=== PATIENT | female | born 1975 | race Caucasian/White ===

== ENCOUNTER 2016-09-17 06:12 | Day surgery (SDC) | payer MEDICARE, OTHER ==
[2016-09-17] VITALS (8 sets, daily range): BP systolic 101–149; BP diastolic 55–91; PULSE 73–97; RESP 16–18; Ht 154.9 cm; Wt 59.0 kg
[~2016-09-17] VITALS: Ht 154.9 cm; Wt 59.0 kg
[~2016-09-17 06:12] MED LIST: AMLO2.5T78 PO; ASPI-664 PO; FER325 PO; LOSA50TA2 PO; VIT1TABL28 PO
[2016-09-17] MEDS ORDERED: LIDOCAINE 1% (MDV) 20 ML INJ ONE (07:00)
--- NOTE | 2016-09-17 08:28 | RADRPT ---
PROCEDURE: XR Chest 1 View. CLINICAL INDICATION: Abnormal breath sounds, preop. TECHNIQUE: AP view of the chest was obtained. COMPARISON: January 20, 2016 FINDINGS: The cardiomediastinal silhouette is within normal limits. Right-sided dialysis catheter has its tip in the expected location of the mid to distal right atrium and appears stable. Elevation right yuliana diaphragm is observed. Atelectasis is noted at the lung bases. No consolidations are identified. N o pneumothorax is seen. Osseous structures are intact. IMPRESSION: Right-sided dialysis catheter that continues to have its tip in the expected location of the mid to distal right atrium. Hypoinflated lungs with mild elevation right hemidiaphragm. Atelectasis at the lung bases. RPTAT: AA .Tony Almendarez MD, Date Time Electronically viewed and signed by .Tony Almendarez MD, on 09/17/2016 08:28 .P/
[2016-09-17] MEDS ORDERED: GELATIN SIZE 100 SPONGE ONE (08:35)
[2016-09-17] MEDS ORDERED: THROMBIN 5000 UNIT VIAL ONE (08:35)
[2016-09-17] MEDS ORDERED: BUPIVACAINE 0.5% (SDV) 30 ML INJ ONE (08:35)
[2016-09-17] MEDS ORDERED: LIDOCAINE 1% (STERILE-PAK) 30 ML INJ ONE (08:35)
[2016-09-17] MEDS ORDERED: HEPARIN 1000 UNITS/ML 10 ML INJ ONE ×2 (08:35→12:48)
[2016-09-17 09:05] LABS: ADD SCAN DIFF NO
[2016-09-17 09:08] LABS: BASOPHILS % 0.4 % (0.0-2.0); EOSINOPHILS # 0.3 10^3/ul (0.0-0.5); EOSINOPHILS % 3.8 % (0.0-7.0); HEMATOCRIT 36.8 % (37.0-47.0); HEMOGLOBIN 11.8 g/dl (12.0-16.0); LYMPHOCYTES # 1.2 10^3/ul (0.8-2.9); LYMPHOCYTES % 15.7 % (15.0-51.0); MEAN CORPUSCULAR HEMOGLOBIN 31.6 pg (29.0-33.0); MEAN CORPUSCULAR HGB CONC 32.1 g/dl (32.0-37.0); MEAN CORPUSCULAR VOLUME 98.4 fl (82.0-101.0); MEAN PLATELET VOLUME 11.1 fl (7.4-10.4); MONOCYTE # 0.6 10^3/ul (0.3-0.9); MONOCYTES % 7.8 % (0.0-11.0); NEUTROPHIL # 5.5 10^3/ul (1.6-7.5); NEUTROPHILS % 71.9 % (39.0-77.0); PLATELET COUNT 152 10^3/UL (140-415); RED BLOOD COUNT 3.74 10^6/ul (4.20-5.40); RED CELL DISTRIBUTION WIDTH 13.2 % (11.5-14.5); WHITE BLOOD COUNT 7.6 10^3/ul (4.8-10.8)
[2016-09-17] MEDS ORDERED: ETOMIDATE 20 MG INJ ONE (09:18)
[2016-09-17 09:27] LABS: INR 0.99; PROTIME 13.1 Sec (12.2-14.2)
--- NOTE | 2016-09-17 10:15 | RADRPT ---
Vent Rate: 64 bpm RR Interval: 0 msec OK Interval: 154 msec QRS Duration: 84 msec QT Interval: 424 msec QTC Interval: 437 msec P-R-T [place]: 52 - 72 - 72 degrees Normal sinus rhythm Normal ECG Electronically Signed By: Gen Baires [id number]
[2016-09-17] MEDS ORDERED: hydrALAzine 20 MG INJ IV PRN (10:30)
[2016-09-17] MEDS ORDERED: HYDROmorphONE (0.2 MG/ML) 10ML SYG IV PRN ×2 (10:30)
[2016-09-17] MEDS ORDERED: DIPHENHYDRAMINE 50 MG INJ IV PRN (10:30)
[2016-09-17] MEDS ORDERED: LABETALOL HCL 20MG INJ IV PRN (10:30)
[2016-09-17] MEDS ORDERED: ONDANSETRON 4 MG INJ IV PRN ×2 (10:30→14:30)
[2016-09-17 10:45] LABS: ALBUMIN 4.2 g/dl (3.3-4.9); ALBUMIN/GLOBULIN RATIO 1.55; BILIRUBIN,INDIRECT 0.1 mg/dl (0-1.1); BILIRUBIN,TOTAL 0.1 mg/dl (0.2-1.3); TOTAL PROTEIN 6.9 g/dl (6.1-8.1)
[2016-09-17 10:48] LABS: CALCIUM 8.6 mg/dl (8.4-10.2); CREATININE 6.81 mg/dl (0.44-1.00)
[2016-09-17 10:54] LABS: POTASSIUM 5.7 mmol/L (3.5-5.1)
[2016-09-17] MEDS ORDERED: CEFAZOLIN 1 GM INJ ONE (11:07)
[2016-09-17] MEDS ORDERED: DEXAMETHASONE 4 MG/ML 1 ML INJ ONE (11:09)
[2016-09-17] MEDS ORDERED: ONDANSETRON 4 MG INJ ONE (11:09)
[2016-09-17] MEDS ORDERED: FAMOTIDINE 20 MG INJ ONE (11:09)
[2016-09-17] MEDS ORDERED: DIPHENHYDRAMINE 50 MG INJ ONE (14:01)
--- NOTE | 2016-09-17 14:06 | OPPN ---
Date/Time of Note Date/Time of Note DATE: 09/17/16 TIME: 14:04 Operative Report Preoperative Diagnosis ESRD Postoperative Diagnosis Same Operation/Procedure Performed LUE AVF Transposition Provider: OBDULIA CARRILLO MD Anesthesia: general Estimated blood loss: minimal Specimens None Grafts/Implants None Complications: None OBDULIA CARRILLO MD Sep 17, 2016 14:06
[2016-09-17] MEDS ORDERED: HYDROCODONE/APAP (5/325) TAB PO PRN (14:30)
--- NOTE | 2016-09-17 18:45 | OPR ---
DATE OF OPERATION: 09/17/2016 PREOPERATIVE DIAGNOSIS: End-stage renal disease. POSTOPERATIVE DIAGNOSIS: End-stage renal disease. PROCEDURE PERFORMED: Left brachiobasilic AV fistula transposition. SURGEON: Obdulia Trevino MD ANESTHESIA: General. ANESTHESIOLOGIST: Jared Camacho DO ESTIMATED BLOOD LOSS: 25 mL. COMPLICATIONS: None. PREOPERATIVE INDICATIONS: This is a 41-year-old female with end-stage renal disease on dialysis via PermCath. She is status post left arm brachiobasilic AV fistula creation stage 1. Her fistula has matured and now is ready for transposition. The indications, risks and benefits of the procedure were discussed with the patient, who understood and agreed to proceed. PROCEDURE: The patient was properly identified, brought to the operating room and placed in a supine position. The patient was induced with general anesthesia without difficulty. The patient's received preoperative antibiotics. The patient's left upper extremity was prepped and draped in the usual sterile fashion. Ultrasound evaluation of the fistula demonstrated that it was widely patent and of good size. Three longitudinal skip incisions along the course of the basilic vein were then created using a 15 blade scalpel. The subcutaneous tissues were then deepened through using electrocautery. At each site, the basilic vein was isolated and circumferentially dissected free. Tributaries were ligated and divided accordingly. After the vein was completely mobilized, a subcutaneous tunnel was created. This was done after injection of local anesthesia in the tunnel tract. A large clamp was used to create the tunnel. The patient was then heparinized with 3000 units of heparin. The fistula was then clamped at the inflow and the outflow. It was transected with Metzenbaum scissors close to the inflow. It was then brought through the skip incisions. The fistula was then flushed and distended with heparinized saline. It was marked for orientation and then brought through the subcutaneous tunnel. The fistula was then reconnected with a veno-venous end to end anastomosis using two 6-0 Prolene sutures. Prior to completion of the suture line, the suture line was flushed and backbled and forward flushed. The suture line was then completed. With release of the clamps, there was good thrill throughout the entire course of the fistula tract. Doppler evaluation demonstrated continuous flow in the venous outflow and there was a good biphasic signal at the radial artery as preoperatively. Hemostasis was obtained using thrombin-soaked Gelfoam. After hemostasis was achieved, the subcutaneous tissues were closed with 3-0 Vicryl sutures. The skin was closed with 4-0 Monocryl in a subcuticular technique. Steri-Strips and dry dressings were then placed. A Kerlix wrap was placed on top. The patient was then awoken from the general anesthesia without any difficulty. She was transferred to recovery in stable condition. There were no immediate complications. Dictated By: OBDULIA MENDEZ/CIELO Conf#: [id number] DID#: [id number]
== END 2016-09-17 16:10 | disposition home or self-care (01) ==
LOC: SDS 06:12
PROVIDERS: ATTEND Surgery
DX: I12.0 Hypertensive chronic kidney disease with stage 5 chronic kidney disease or end stage renal disease (principal); N18.6 End stage renal disease
CPT/HCPCS: 36819; 71010; 80053; 85025; 85610; 85730; 93005; C1725; J0690; J1100; J1644; J2405; J3010; J1200